=== PATIENT | male | born 1960 | race Caucasian/White ===

== ENCOUNTER → 2016-08-07 | Outpatient (CLI) | payer BC ==
--- NOTE | 2016-08-07 16:34 | RAD ---
Bilateral lower extremity arterial ultrasound, 08/07/2016: History: Peripheral vascular disease Duplex evaluation of the major arteries in both lower extremities was performed including grayscale, color-flow and spectral Doppler analysis. There are moderate scattered atherosclerotic plaques bilaterally. The right common femoral and profunda femoris arteries demonstrate biphasic Doppler waveforms. In the proximal and mid right superficial femoral artery the Doppler waveforms are biphasic. There is more extensive plaquing in the distal right superficial femoral artery. No significant focal velocity elevation was delineated to suggest high-grade focal stenosis. The right popliteal Doppler waveform is dampened and monophasic. Patent posterior tibial, peroneal and anterior tibial arteries are present in the right lower leg demonstrating dampened monophasic waveforms. The right dorsalis pedis artery is patent with a poorly pulsatile monophasic Doppler waveform. On the left, the common femoral Doppler waveform is monophasic suggesting iliac inflow disease. There is a segment of the left mid to distal superficial femoral artery which appears occluded. There is reconstitution of the distal left superficial femoral artery via collateral circulation. The Doppler waveform at that level is dampened and monophasic. The left popliteal Doppler waveform is monophasic, but of better amplitude, presumably due to collateral flow. In the left lower leg the anterior tibial, posterior tibial and peroneal arteries are markedly dampened and monophasic. The left. Dorsalis pedis arteries demonstrates a similar poor Doppler waveform. IMPRESSION: 1. Moderate generalized atherosclerotic plaquing. 2. No focal high-grade femoral-popliteal stenosis is identified on the right, however, there is considerable degradation of the Doppler waveforms in the right lower leg and ankle. 3. Probable left iliac inflow disease. 4. Occlusion of the left mid to distal superficial femoral artery with distal reconstitution via collateral circulation. 5. Three-vessel arterial runoff in both lower legs demonstrating markedly dampened Doppler waveforms bilaterally.
== END | disposition home or self-care (01) ==
LOC: US 12:04
PROVIDERS: ATTEND Family Medicine
DX: I65.23 Occlusion and stenosis of bilateral carotid arteries (principal)
CPT/HCPCS: 93925

== ENCOUNTER → 2016-09-11 | Outpatient (CLI) | payer BC ==
[~2016-09-11] MED LIST: INSU100I9 SQ; INSU100V13 SQ; INSU100V31 SQ; IOHEXOL 350 MG/ML 100 ML VIAL. IV ONE; LINA5TAB4 PO; LISI1TAB5 PO; OMEP20CA9 PO; amlodipine PO; atorvastatin PO; carvedilol PO
[2016-09-11 12:08] LABS: CREATININE 1.7 mg/dL (0.7-1.3); GFR 42.1
== END | disposition home or self-care (01) ==
LOC: CT 11:00
PROVIDERS: ATTEND Specialist
DX: I70.213 Atherosclerosis of native arteries of extremities with intermittent claudication, bilateral legs (principal)
CPT/HCPCS: 36415; 82565; 84520; Q9967

== ENCOUNTER 2016-09-15 07:17 | Outpatient (CLI) | payer BC ==
[~2016-09-15] VITALS: Ht 185.4 cm; Wt 86.2 kg
[~2016-09-15 07:17] MED LIST changes: -INSU100V13 SQ; -IOHEXOL 350 MG/ML 100 ML VIAL. IV ONE; -LINA5TAB4 PO; -OMEP20CA9 PO; -amlodipine PO; -atorvastatin PO; -carvedilol PO
[2016-09-15] MEDS ORDERED: SODIUM BICARBONATE VIAL 150 MEQ in IV STERILE WATER 1,000 ML IV ONE (07:45)
[2016-09-15] MEDS ORDERED: carvedilol PO (07:59)
[2016-09-15] MEDS ORDERED: INSU100V13 SQ (07:59)
[2016-09-15] MEDS ORDERED: atorvastatin PO (07:59)
[2016-09-15] MEDS ORDERED: LINA5TAB4 PO (07:59)
[2016-09-15] MEDS ORDERED: OMEP20CA9 PO (07:59)
[2016-09-15] MEDS ORDERED: amlodipine PO (07:59)
[2016-09-15 08:24] VITALS: BP 123/73
[2016-09-15] MEDS ORDERED: IOHEXOL 350 MG/ML 100 ML VIAL. IV ONE (09:45)
--- NOTE | 2016-09-15 16:56 | RAD ---
Indication claudication. Chronic leg pain. CTA targeted to the abdominal aorta and the runoff vessels in the legs was performed. MIP images were generated and reviewed.. Volume rendered images were also generated and reviewed. Approximately 80 cc of Omnipaque 350 was administered. The lung bases appear clear. There is a subcentimeter vascular mass in the left lobe of the liver. This is likely incidental probably reflecting an hemangioma. A definite significant finding in the visualized liver is not seen. There is cholelithiasis. The spleen appears unremarkable. No adrenal or renal anomalies are seen. The pancreas appears unremarkable. An acute finding in the abdomen or pelvis is not apparent. There is a probable enchondroma, or bone infarct associated with the distal right femoral diaphysis. This could be further evaluated with plain films. The vascular aspect of this study (CTA) is significantly limited. There is suboptimal opacification of the major arteries of the abdomen and lower extremities. The images were obtained " too late" and essentially during the portal venous phase.. There is moderate plaquing involving the abdominal aorta. There is no aneurysm formation. There are main bilateral renal arteries which are patent. There is an accessory renal artery on the right. The SMA and celiac are widely patent. The TOBY appears patent. There is moderately heavy plaquing involving both common iliac arteries. High-grade arterial stenosis involving either common iliac artery is not seen. Each common iliac bifurcates into the external and internal iliac vessels. The right external iliac shows no significant stenosis. There is a short segment of stenosis estimated at approximately 70% associated with the proximal left external iliac artery. On the right there is plaquing associated with the common femoral artery. The common femoral bifurcates unremarkably. There is moderately heavy plaquing involving the proximal right SFA. There are multiple areas of calcification and suggested narrowing throughout the superficial femoral artery with somewhat more severe disease suggested near the adductor canal. A stent is noted in the SFA proximally. The vessels, however, again are very poorly opacified. Scattered areas of plaque are seen associated with the popliteal artery. There appears to be three-vessel runoff to the foot. On the left there is no significant opacification of the major vessels of the leg beyond the common femoral artery. Multiple areas of plaquing are seen throughout the SFA. Some flow is seen in the popliteal artery probably on a collateral basis. Similar to the contralateral side there appears to be three-vessel runoff to the ankle. IMPRESSION: Suboptimal CTA. There is poor opacification of the major arteries. Short stenotic component associated with the proximal left external iliac artery. Stenosis estimated at approximately 70%. Multiple areas of narrowing are suggested associated with the right superficial femoral artery. Insufficient opacification of the left SFA for analysis. Three-vessel runoff in both calves. Probable small hemangioma in the left lobe of the liver. Probable bone infarct or enchondroma distal right femur. Plain film imaging should be considered. Cholelithiasis PQRS Compliance Statement: One or more of the following individualized dose reduction techniques were utilized for this examination: 1. Automated exposure control 2. Adjustment of the mA and/or kV according to patient size 3. Use of iterative reconstruction technique
== END 2016-09-15 13:00 | disposition home or self-care (01) ==
LOC: CT 07:17
PROVIDERS: ATTEND Specialist
DX: I70.213 Atherosclerosis of native arteries of extremities with intermittent claudication, bilateral legs (principal); G89.29 Other chronic pain
CPT/HCPCS: 75635; Q9967

== ENCOUNTER → 2016-10-16 | Outpatient (CLI) | payer BC ==
[2016-10-16] VITALS (11 sets, daily range): BP systolic 77–134; BP diastolic 43–75
[~2016-10-16] VITALS: Ht 185.4 cm; Wt 86.2 kg
[~2016-10-16] MED LIST changes: +ASPIRIN 325 MG TABLET PO ONE; +CLOP75TA PO; +CLOPIDOGREL BISULFATE 75 MG TABLET PO ONE; +DEXTROSE 50% 25 GM / 50ML DISP.SYRIN. IV ONE; +DEXTROSE ORAL GEL 15 GM TUBE. ONE; +HEPARIN PF 500 UNIT/5 ML DISP.SYRIN. IV ONE; +HEPARIN for IV BOLUS 10,000 UNIT/10 ML VIAL. IV ONE; +HEPARIN for IV BOLUS 10,000 UNIT/10 ML VIAL. ONE; +INSU100V13 SQ; +IODIXANOL 320 MG/ML 100 ML VIAL. IART ONE; +IODIXANOL 320 MG/ML 100 ML VIAL. ONE; +IODIXANOL 320MG/ML 50ML VIAL. ONE; +LIDOCAINE 1% / SOD BICARB 8.4% 20 ML VIAL. IJ ONE; +LIDOCAINE 1%/EPI 1:100,000 20 ML VIAL. INJ ONE; +LINA5TAB4 PO; +MIDAZOLAM HCL/PF 2 MG/2 ML VIAL. IV ONE; +MIDAZOLAM HCL/PF 5 MG/5 ML VIAL. IV ONE; +MIDAZOLAM HCL/PF 5 MG/5 ML VIAL. ONE; +OMEP20CA9 PO; +VARE1TAB21 PO; +amlodipine PO; +atorvastatin PO; +carvedilol PO; +fentaNYL PF VIAL 250 MCG/5 ML VIAL IV ONE; +fentaNYL PF VIAL 250 MCG/5 ML VIAL ONE
[2016-10-16 07:40] LABS: BASO # 0.1 x10^3/uL (0.0-0.2); BASO % 1 % (0-3); EOS % 3 % (0-3); HEMATOCRIT 40.4 % (39.0-53.0); HEMOGLOBIN 13.6 g/dL (13.0-17.5); LYMPH # 1.4 x10^3/uL (1.0-4.8); LYMPH % 17 % (24-48); MEAN CORPUSCULAR HEMOGLOBIN 32 pg (25-35); MEAN CORPUSCULAR HGB CONC 34 g/dL (31-37); MEAN CORPUSCULAR VOLUME 94 fL (79-100); MONO % 8 % (0-9); NEUT % 72 % (31-73); PLATELET COUNT 210 x10^3/uL (140-400); RED CELL DISTRIBUTION WIDTH 14.1 % (11.5-14.5); WHITE BLOOD COUNT 8.3 x10^3/uL (4.0-11.0)
[2016-10-16 07:51] LABS: PROTHROMBIN TIME PATIENT 12.4 SEC (11.7-14.0)
[2016-10-16 07:52] LABS: CALCIUM 9.9 mg/dL (8.5-10.1); CREATININE 1.5 mg/dL (0.7-1.3); GFR 48.6; POTASSIUM 5.1 mmol/L (3.5-5.1)
--- NOTE | 2016-10-16 10:26 | PDOC4 ---
OPERATIVE NOTE: October 16, 2016 Preoperative diagnosis: Atherosclerosis with bilateral lower extremity claudication COPD Active tobacco abuse Hypertension Hyperlipidemia Postoperative diagnosis: Same Surgeon: Nuris Tripathi, , RAFA, RPGLEN Procedure: Ultrasound-guided access of the right common femoral artery Abdominal aortogram with bilateral lower extremity runoff Introduction of catheter into the abdominal aorta Percutaneous, endovascular, stent placement to the left external iliac artery using a 8 x 29 mm balloon expandable stent Right common femoral artery Starclose Specimens: None Complications: None Preoperative indications: This is a pleasant 56-year-old male with previous history of left femoral to above-knee popliteal artery bypass using saphenous vein graft. The patient has continued to smoke AGAINST MEDICAL ADVICE. He presents with bilateral lower extremity short distance calf claudication. On surveillance imaging the patient was found to have evidence of left external iliac artery stenosis. The patient was consented for angiogram and understood all risks benefits and alternatives of the procedure prior to proceeding with surgery. Operative procedure: Patient was brought to the catheterization suite and placed in the supine position. Following this using a sterile ultrasound probe the right common femoral artery was directly visualized. Next 1% lidocaine was infiltrated underneath the skin. Following this a micropuncture needle was used to access the right common femoral artery under direct ultrasound guidance. Next a micro- wire was inserted under fluoroscopy guidance. Following this a small skin incision was made, and the micro sheath was inserted. Next a 0.35 J-wire was inserted under fluoroscopy guidance. Following this our micro-sheath was exchanged for a 5 Monegasque 11 cm sheath. This was appropriately flushed. Next an Omni Flush catheter was inserted up to the level of L1 and an abdominally aortogram was performed. The abdominal aortogram findings are as follows: The proximal, mid, and distal abdominal aorta is widely patent. There is a high- grade stenosis in the left extraocular iliac artery. The right and left common iliac arteries are widely patent. The right and left hypogastric arteries are widely patent. The right external iliac artery is widely patent. At this point in time our catheter was pulled back to the aortic bifurcation, and a bilateral lower extremity runoff was performed. The right lower extremity arterial findings are as follows: The right common femoral artery is widely patent right profunda femoral artery is widely patent. The right superficial femoral artery occludes just distal to its origin and reconstitutes through profundofemoral collaterals at the behind the knee popliteal artery. The patient runs off through very small and underfilled three-vessel runoff with a dominant anterior tibial artery. The left lower extremity arterial findings are as follows: The left common femoral artery is widely patent, the left profunda femoral artery is widely patent. There is a flush occlusion of the superficial femoral artery, and the left sided femoropopliteal bypass graft is occluded. The patient reconstitutes a preserved to below the knee popliteal artery through profundofemoral collaterals and runs off through three-vessel runoff with a dominant anterior tibial artery. At this point in time our Omni flush catheter was used to select the left common iliac artery, and a Glidewire advantage was positioned into the left common femoral artery. Next our 5 Monegasque sheath was exchanged for a 6 Monegasque 45 cm sheath. This was appropriately flushed with heparinized saline. Next the patient was systemically heparinized per weight-based protocol. Following this a 6 x 40 mm angioplasty balloon was positioned across the external iliac artery lesion and balloon angioplastied to nominal pressure. Following this a 8 x 29 mm balloon expandable stent was inserted across the lesion and expanded to nominal pressure. Completion images revealed brisk flow through the external iliac artery with no residual flow limiting stenosis. At this point in time our sheath was withdrawn into the right iliac system. Next a Roy close device was inserted and deployed successfully. The patient had excellent hemostasis at the level of the right common femoral artery puncture site. The patient was taken to the post catheterization area in stable condition. Nuris Tripathi DO, FACS, RPVI Manager [facility] NURIS TRIPATHI DO Oct 16, 2016 10:26
== END | disposition home or self-care (01) ==
LOC: INTRAD 07:02
PROVIDERS: ATTEND Specialist
DX: I70.213 Atherosclerosis of native arteries of extremities with intermittent claudication, bilateral legs (principal); E78.5 Hyperlipidemia, unspecified; I10 Essential (primary) hypertension; F17.200 Nicotine dependence, unspecified, uncomplicated; J44.9 Chronic obstructive pulmonary disease, unspecified; E78.00 Pure hypercholesterolemia, unspecified; K21.9 Gastro-esophageal reflux disease without esophagitis; Z86.39 Personal history of other endocrine, nutritional and metabolic disease; E11.9 Type 2 diabetes mellitus without complications
CPT/HCPCS: 36246; 36415; 37221; 75625; 75716; 76937; 80048; 82962; 85027; 85610; 99152; 99153; C1713; C1760; C1876; C1885; C1887; C1892; C1894; J2250; J3010; Q9967; G0269; J1644